=== PATIENT | female | born 1960 | race Caucasian/White ===

== ENCOUNTER → 2025-04-06 07:49 | Outpatient (CLI) | payer MEDICARE, SELFPAY ==
[2025-04-06 09:08] LABS: Add Manual Diff / Slide Review NO; Hematocrit 40.9 % (36-46); Hemoglobin 13.9 g/dL (12.0-16.0); Lymphocytes Absolute Auto 1900 /uL (1100-4500); Mean Corpuscular HGB Conc 34.1 % (30-36); Mean Corpuscular Hemoglobin 28.6 PG (26-34); Mean Corpuscular Volume 83.9 fL (80-100); Platelet Count 351 X10^3/uL (150-400)
[2025-04-06 09:16] LABS: Hemoglobin A1C% w Est Avg Glu 6.7 % (4.0-6.0)
[2025-04-06 09:35] LABS: Alanine Aminotransferase 14 IU/L (<35); Albumin 3.8 g/dL (3.5-5.0); Albumin Globulin Ratio 1.3 (1.0-2.8); Alkaline Phosphatase 90 U/L (38-126); Blood Urea Nitrogen 13 mg/dL (7-17); Calcium 9.1 mg/dL (8.4-10.2); Carbon Dioxide 29 mmol/L (22-32); Chloride 104 mmol/L (98-107); Cholesterol 189 mg/dL (140-199); Estimated Glomerular Filt Rate > 60 mL/min (>60); Globulin 2.9 g/dL (1.7-4.1); Glucose 135 mg/dL (70-99); HDL Cholesterol 72 mg/dL (40-60); HEMOLYSIS < 15 (0-50); Potassium 4.5 mmol/L (3.4-5.1); Sodium 136 mmol/L (137-145); Total Protein 6.7 g/dL (6.3-8.2); Triglycerides 81 mg/dL (35-150)
== END ==
PROVIDERS: PCP Family Medicine; Referring Provider Family Medicine; Visit Provider Family Medicine
DX: E66.811 Obesity, class 1 (principal); E11.9 Type 2 diabetes mellitus without complications; E78.5 Hyperlipidemia, unspecified; I10 Essential (primary) hypertension
CPT/HCPCS: 36415; 80053; 80061; 83036; 85025

== ENCOUNTER → 2025-04-10 07:38 | Outpatient (CLI) | payer MEDICARE, SELFPAY ==
--- NOTE | 2025-04-10 07:40 | DI.US.S_ITS ---
PROCEDURE: US ABDOMEN LIMITED INDICATIONS: RUQ pain TECHNIQUE: Real-time focused scanning was performed of the abdomen, with image documentation. COMPARISON: None. FINDINGS: Liver is mildly increased in echogenicity commonly hepatic steatosis or intrinsic hepatic disease. Liver measures approximately 15.6 cm in CC dimension of the right lobe within normal limits in size. No ultrasound evidence of focal hepatic lesion. At least 3 large nonmobile echogenic shadowing gallstones within nondistended gallbladder. No ultrasound evidence of gallbladder wall thickening or pericholecystic fluid. Sonographic Bhagat sign is noted as negative. Common bile duct 4 mm within normal limits. Pancreas is not well visualized due to overlying bowel gas. IMPRESSION: Cholelithiasis without ultrasound evidence of cholecystitis. Mild increased echogenicity of the liver commonly hepatic steatosis or intrinsic hepatic disease. If symptoms persist or worsen, or there is high clinical suspicion of abdominal abnormality, CT could be performed. Dictated by: Rip Soriano M.D. on 04/10/2025 at 8:54 Approved by: Rip Soriano M.D. on 04/10/2025 at 8:58
== END ==
LOC: US 07:39
PROVIDERS: PCP Family Medicine; Referring Provider Family Medicine; Visit Provider Family Medicine
DX: R10.11 Right upper quadrant pain (principal); K80.20 Calculus of gallbladder without cholecystitis without obstruction
CPT/HCPCS: 76705